=== PATIENT | female | born 1960 | race African-American/Black ===

== ENCOUNTER 2018-12-02 20:31 | Emergency (ER) | payer OTHER ==
[~2018-12-02] VITALS: Ht 162.6 cm; Wt 68.0 kg
[2018-12-02 20:40] VITALS: BP 123/66
--- NOTE | 2018-12-02 20:40 | NUR ---
ED Nurse Note: Pt walked in and c/o flu like syndrome: headache, R earache, sore throat, feels tired. Pt has the syndrome on and off this month but didn't see the MD. pt denies pain. pt stated she feels nauseted but denies vomiting. son on bedside. will continue to monitor.
[2018-12-02] MEDS ORDERED: IBUPROFEN600 MG ORAL (21:05)
[2018-12-02] MEDS ORDERED: TAMIFLU75 MG ORAL (21:05)
--- NOTE | 2018-12-02 21:06 | Emergency Room Report ---
History of Present Illness General Chief Complaint: Flu Like Symptoms Source: Patient Present Illness [facility] This is a 58-year-old female with history hypertension. She presents with chief complaint of flulike illness. Onset yesterday. She has fever and chills. Has some nausea and vomiting. No diarrhea. Has nonproductive cough with congestion. Nothing made it better. Nothing made it worse. Has not anything for it. Body pain is 7 out of 10. No sick contact. Allergies: Coded Allergies: No Known Allergies (Unverified , 12/02/18) Patient History Past Medical History: see triage record, old chart reviewed, HTN Past Surgical History: none Pertinent Family History: none Social History: Denies: smoking Now: No Immunizations: other Reviewed Nursing Documentation: PMH: Agreed; PSxH: Agreed Nursing Documentation-PMH Hx Hypertension: Yes Review of Systems Constitutional: Reports: chills, fever, malaise, weakness Eye: Denies: eye pain, blurred vision ENT: Denies: ear pain, nose congestion, throat swelling Respiratory: Reports: cough; Denies: shortness of breath Cardiovascular: Denies: chest pain, palpitations Gastrointestinal: Reports: nausea, vomiting; Denies: abdominal pain, diarrhea Musculoskeletal: Denies: back pain, joint pain Skin: Denies: rash Neurological: Denies: headache, numbness Endocrine: Denies: increased thirst, increased urine Hematologic/Lymphatic: Denies: easy bruising All Other Systems: negative except mentioned in HPI Physical Exam Vital Signs Date Time Temp Pulse Resp B/P (MAP) Pulse Ox O2 Delivery O2 Flow Rate FiO2 12/02/18 20:36 99.5 101 18 123/66 98 Room Air vitals unremarkable. Sp02 EP Interpretation: reviewed, normal General Appearance: well appearing, no apparent distress, alert Head: normocephalic, atraumatic Eyes: bilateral eye PERRL, bilateral eye EOMI ENT: hearing grossly normal, normal pharynx Neck: full range of motion, supple, no meningismus Respiratory: chest non-tender, lungs clear, normal breath sounds Cardiovascular #1: regular rate, rhythm, no murmur Gastrointestinal: normal bowel sounds, non tender, no mass, no organomegaly, no bruit, non-distended Musculoskeletal: back normal, gait/station normal, normal range of motion Psychiatric: mood/affect normal Skin: warm/dry Medical Decision Making Diagnostic Impression: Primary Impression: Influenza-like symptoms ER Course Patient with flulike illness. Since his only been 24 hours, we'll put her on Tamiflu. No evidence of any meningitis, sepsis, pneumonia, or other serious bacterial infection. Last Vital Signs Date Time Temp Pulse Resp B/P (MAP) Pulse Ox O2 Delivery O2 Flow Rate FiO2 12/02/18 20:40 99.5 101 18 123/66 98 Room Air Status: improved Disposition: HOME, SELF-CARE Condition: Stable Scripts Ibuprofen* (MOTRIN*) 600 Mg Tablet 600 MG ORAL THREE TIMES A DAY, #30 TAB 0 Refills Prov: Ridge Sánchez MD 12/02/18 Oseltamivir Phosphate (Tamiflu) 75 Mg Capsule 75 MG ORAL TWICE A DAY, #10 CAP Prov: Ridge Sánchez MD 12/02/18 Additional Instructions: Rest. Increase fluids. Follow-up with your Dr. in 2 to 3 days of not better. Return if worse. Ridge Sánchez MD Dec 02, 2018 21:06
--- NOTE | 2018-12-02 21:11 | NUR ---
ED Nurse Note: Patient is being discharged from ED alert and oriented x4, ambulatory with a steady gait, VSS. Patient acknowledged the need to follow up with a PMD, Patient was advised to return if symptoms worsen. prescription in hand, ID band removed. pt left the ed with all the belongings.
== END 2018-12-02 21:15 | disposition home or self-care (01) ==
LOC: EMR 21:00
DX: J11.1 Influenza due to unidentified influenza virus with other respiratory manifestations (principal); I10 Essential (primary) hypertension
CPT/HCPCS: 99282